=== PATIENT | male | born 1985 | race Caucasian/White ===

== ENCOUNTER 2021-09-24 04:55 | Emergency (ER) | payer OTHER ==
--- NOTE | 2021-09-24 05:11 | ED ---
Recheck HPI - General Stated Complaint: Flank pain Time Seen by Provider: 09/24/21 04:58 - Related Data Home Medications Medication Instructions Recorded Confirmed Ibuprofen [Motrin] 600 mg PO Q6HR PRN 12/26/16 12/26/16 carBAMazepine [TEGretol] 400 mg PO TID 12/26/16 12/26/16 Previous Rx's Medication Instructions Recorded Acetaminophen-Codeine 300-30mg 1 each PO Q6H PRN #15 tablet 12/26/16 [Tylenol #3] Tamsulosin [Flomax] 0.4 mg PO DAILY #10 cap 12/26/16 Allergies Allergy/AdvReac Type Severity Reaction Status Date / Time Penicillins Allergy Unknown Verified 09/24/21 05:35 Childhood Review of Systems ROS Statement: Those systems with pertinent positive or pertinent negative responses have been documented in the HPI. ROS Other: All systems not noted in ROS Statement are negative. Past Medical History Past Medical History: Seizure Disorder Additional Past Medical History / Comment(s): kidney stones History of Any Multi-Drug Resistant Organisms: None Reported Past Surgical History: Orthopedic Surgery Additional Past Surgical History / Comment(s): lt knee Past Psychological History: No Psychological Hx Reported Past Alcohol Use History: None Reported Past Drug Use History: Marijuana Course Vital Signs 09/24/21 05:33 Temperature 98.2 F Pulse Rate 68 Respiratory 16 Rate Blood Pressure 144/105 O2 Sat by Pulse 98 Oximetry Disposition Clinical Impression: Testicle pain, Kidney stones Disposition: HOME SELF-CARE Condition: Good Instructions (If sedation given, give patient instructions): Testicle Pain (ED), Kidney Stones (ED) Is patient prescribed a controlled substance at d/c from ED?: No Referrals: Rosales Patten MD [STAFF PHYSICIAN] - 1-2 days
[2021-09-24 05:35] VITALS: RESP 16; TEMP 98.2
[2021-09-24] MEDS ORDERED: MORPHINE SULFATE 4 MG/ML SYRINGE IVP STA (05:37)
[2021-09-24] MEDS ORDERED: KETOROLAC 15 MG/ML 1 ML VIAL IVP STA (05:37)
--- NOTE | 2021-09-24 05:58 | US ---
EXAMINATION TYPE: US scrotum with doppler. Grayscale and color Doppler Duplex imaging performed of t he scrotum. DATE OF EXAM: 09/24/2021 COMPARISON: NONE CLINICAL HISTORY: pain. Left side pain since Saturday. No trauma. EXAM MEASUREMENTS: TESTICLES: Right Testicle: 4.8 x 5.7 x 3.0 cm Left Testicle: 3.6 x 4.1 x 2.3 cm EPIDIDYMIS HEAD: Right Epididymis: 0.8 x 0.5 x 0.6 cm Left Epididymis: 0.8 x 0.8 x 0.6 cm Doppler performed to assess for testicular vascularity; good bilateral color flow and waveforms are s een. There is no evidence of testicular torsion. Presence of hydroceles: no Presence of varicoceles: no Left testicle hypoechoic area = 2.3 x 2.5 x 1.8 cm. Echogenic foci seen in left teste. Cyst visualiz ed in left teste= 0.4 cm IMPRESSION: Left testicle is smaller than the right. There is poorly marginated hypoechoic area in the lower pole of the left testicle. The appearance is nonspecific. I would consider both infection and tumor. No e vidence of testicular torsion. Follow-up is recommended.
[2021-09-24] MEDS ORDERED: HYDROmorphone 1 MG/ML 1 ML SYRINGE IVP STA (06:14)
[2021-09-24 06:42] VITALS: BP 154/96; PULSE 78
[2021-09-24 06:53] LABS: Appearance,Urine Cloudy (Clear); Bilirubin,Urine Negative (Negative); Blood,Urine Negative (Negative); Color,Urine Yellow; Glucose,Urine (UA) Negative (Negative); Ketones,Urine 2+ (Negative); Leukocyte Esterase,Urine Small (Negative); Mucus,Urine Many /hpf; Nitrite,Urine Negative (Negative); Protein,Urine 1+ (Negative); RBC,Urine 1 /hpf (0-5); Specific Gravity,Urine 1.028 (1.001-1.035); Squamous Epithelial Cell,Urine 1 /hpf (0-4); WBC,Urine 28 /hpf (0-5)
[2021-09-24] MEDS ORDERED: LORazepam 1 MG TAB PO STA (08:01)
== END 2021-09-24 08:50 | disposition home or self-care (01) ==
LOC: EC 04:55
DX: N20.0 Calculus of kidney (principal); F12.90 Cannabis use, unspecified, uncomplicated; Z88.0 Allergy status to penicillin
CPT/HCPCS: 81001; 93975; 76870; 99284; 96374; 96375; J2270; J1170